=== PATIENT | male | born 1975 | race Caucasian/White ===

== ENCOUNTER 2020-11-30 09:32 | Emergency (ER) | payer OTHER ==
[~2020-11-30] VITALS: Ht 182.9 cm; Wt 111.1 kg
[2020-11-30 10:13] LABS: ABSOLUTE NEUTROPHILS 8.3 thou/uL (1.4-8.2); BASOPHILS 0.5 % (0.0-2.0); EOSINOPHILS 1.5 % (0.0-3.0); HEMATOCRIT 41.1 % (42.0-52.0); HEMOGLOBIN 14.2 gm/dL (14.0-18.0); LYMPHOCYTES 22.2 % (24.0-44.0); MCH 29.6 pg (26.0-34.0); MCHC 34.7 g/dL (28.0-37.0); MCV 85.3 fL (80.0-100.0); MONOCYTES 4.7 % (1.0-8.0); PLATELET COUNT 203 thou/uL (150-400); POLYS 71.1 % (36.0-66.0); RBC 4.81 mil/uL (4.50-6.00); RDW 13.4 % (10.5-14.5); WBC 11.7 thou/uL (4.0-11.0)
[2020-11-30 10:20] LABS: ANION GAP 14 mmol/L (7-16); BUN 16 mg/dL (7-18); CHLORIDE 99 mmol/L (98-107); CO2 24 mmol/L (21-32); CREATININE 0.9 mg/dL (0.7-1.3); GLUCOSE 278 mg/dL (74-106); POTASSIUM 3.9 mmol/L (3.5-5.1); SODIUM 137 mmol/L (136-145)
--- NOTE | 2020-11-30 10:26 | EKG ---
[place] [address] [facility] [employer] [place] [address] ELECTROCARDIOGRAM REPORT Name: GILBERTO PENG Room #: REG CHARLES Arredondo#: [id number] Admission: 11/30/20 Attend Phys: Discharge: Date of : 75 Report #: [id number] [facility] ED Test Date: 2020-11-30 Test Time: 09:34:29 Pat Name: GILBERTO PENG Department: Room: Gender: M Room Worker: Sammi BRADLEY : 1975 Requested By: Anthony Santos Order Number: [id number] MD: Vazquez De La Garza Measurements Intervals [place] Rate: 83 P: 62 OR: 160 QRS: 9 QRSD: 85 T: 22 QT: 340 QTc: 400 Interpretive Statements Sinus rhythm Probable left atrial enlargement ST elev, probable normal early repol pattern No previous ECG available for comparison Electronically Signed On 11-30-2020 10:26:32 CDT by Vazquez De La Garza [email or web address] <ELECTRONICALLY SIGNED> By: Vazquez De La Garza MD, [facility] 11/30/20 1026 0934 0934 Vzaquez De La Garza MD, FACC /EPI
[2020-11-30 10:31] LABS: ALBUMIN 3.3 g/dL (3.4-5.0); SGOT 13 U/L (15-37); SGPT 24 U/L (30-65); TOTAL BILIRUBIN 0.5 mg/dL (0.2-1.0); TOTAL PROTEIN 7.5 g/dL (6.4-8.2); TROPONIN-I <0.06 ng/mL (<0.06)
[2020-11-30 11:31] LABS: CHOLESTEROL 179 mg/dL (<200); HDL CHOLESTEROL 27 mg/dL (>40); LDL CHOLESTEROL 127 mg/dL (<100); TC:HDL 6.6 Ratio (Not establshd); TRIGLYCERIDE 128 mg/dL (<150); VLDL 26 mg/dL (<40)
--- NOTE | 2020-11-30 12:17 | EKG ---
[place] [address] [place] [address] ELECTROCARDIOGRAM REPORT Name: GILBERTO PENG Room #: REG CHARLES Arredondo#: [id number] Admission: 11/30/20 Attend Phys: Discharge: Date of : 75 Report #: [id number] [facility] ED Test Date: 2020-11-30 Test Time: 10:23:05 Pat Name: GILBERTO PENG Department: Room: Gender: M [employer]: ANGELINA : 1975 Requested By: Anthony Santos Order Number: [id number] MD: Vazquez De La Garza Measurements Intervals [place] Rate: 82 P: 54 MT: 158 QRS: 5 QRSD: 88 T: 10 QT: 347 QTc: 406 Interpretive Statements Sinus rhythm ST elev, probable normal early repol pattern Baseline wander in lead(s) V5 Compared to ECG 11/30/2020 09:34:29 No significant changes Electronically Signed On 11-30-2020 12:17:19 CDT by Vazquez De aL Garza [email or web address] <ELECTRONICALLY SIGNED> By: Vazquez De La Garza MD, [facility] 11/30/20 1217 1023 1023 Vazquez De La Garza MD, FACC /EPI
--- NOTE | 2020-11-30 14:46 | EXE ---
[facility] [place] [address] STRESS ECHOCARDIOGRAM Name: GILBERTO PENG Room #: REG Maria Elena#: [id number] Admission: 11/30/20 Attend Phys: Discharge: Date of : 75 Report #: [id number] THIS REPORT FOR: cc: FAM - Family physician unknown FAM - Family physician unknown Sukumar Perez MD [facility] ~ APPROVED REPORT Study performed: 11/30/2020 12:05:29 Exam: Stress Echocardiogram Indication: Chest pain Patient Location: ER Stress Nurse: Nancy Flannery RN Room #: 2 Status: routine Ht: 6 ft 0 in HR: 87 bpm BP: 106/84 mmHg Rhythm: NSR Medical History Medical History: Diabetes Cardiac Risk Factors: DM, Smoking, FHX of CAD Exercise History: Indeterminate Procedure The patient underwent an Exercise Stress Test using the Jordan Protocol. Blood pressure, heart rate, and EKG were monitored. An Echocardiogram was performed by reproduction technician in four stages in quad fashion. At peak stress, four selected images were obtained and placed side by side with resting images for comparison. Stress Test Details Stress Test: Exercise stress testing was performed using a Jordan protocol. HR Resting HR: 87 bpm Max Heart Rate (APMHR): 175 bpm Max HR Achieved: 148 bpm Target HR (85% APMHR): 148 bpm % of APMHR: 84 Recovery HR: 96 bpm HR response to stress: Normal HR response to stress BP [facility] [address] [place] [address] STRESS ECHOCARDIOGRAM Name: GILBERTO PENG [facility] #: [id number] Admission: 11/30/20 Attend Phys: Discharge: Date of : 75 Report #: [id number] Resting BP: 106/84 mmHg Max BP: 186/84 mmHg Recovery BP: 114/82 mmHg BP response to stress: Normal blood pressure response to stress. ECG Resting ECG: Sinus Rhythm, early repolarization Stress ECG: Sinus Tachycardia ST Change: Non-ischemic Maximum ST Deviation: 0 mm Arrhythmia: None Recovery ECG: Sinus Rhythm Recovery ST Change: Non-ischemic Recovery ST Deviation: 0 mm Recovery Arrhythmia: None Clinical Reason for Termination: Maximal effort Exercise duration: 9 min sec Highest Stage Achieved: Stage 3: 3.4 mph at 14% grade. Exercise capacity: 10.4 METs Overall Exercise Capacity for Age: Good Stress ECG Conclusion Clinical: Non-ischemic ECG: Non-ischemic Pre-Stress Echo The resting Echocardiogram showed normal left ventricular contractility with an estimated Ejection Fraction of about >55%. The resting echocardiogram demonstrated normal wall motion in all wall segments. Post-Stress Echo The stress Echocardiogram showed normal left ventricular contractility with an estimated Ejection Fraction of about 65-70%. Compared to rest, there were no stress-induced wall motion abnormalities. Conclusion Clinical Response: Non-ischemic Exercise Capacity: Average Stress ECG Response: Non-ischemic Stress Echo Images: Non-ischemic Color flow doppler was normal. Normal stress echocardiogram with maximal exercise stress. [facility] [address] [place] [address] STRESS ECHOCARDIOGRAM Name: GILBERTO PENG Room #: REG [facility]#: [id number] Admission: 11/30/20 Attend Phys: Discharge: Date of : 75 Report #: [id number] No prior study available for comparison. Other Information Study Quality: Good <Conclusion> Color flow doppler was normal. Normal stress echocardiogram with maximal exercise stress. <ELECTRONICALLY SIGNED> By: Sukumar Perez MD, FACC 11/30/20 1446 45 45 Sukumar Perez MD, FACC /INF
[2020-11-30] MEDS ORDERED: ROSUVASTATIN CA20 MG PO (15:07)
[2020-11-30] MEDS ORDERED: LISINOPRIL5 MG PO (15:07)
[2020-11-30 15:19] VITALS: BP 110/73
[2020-12-01 00:06] LABS: GLYCOHEMOGLOBIN (HGB A1C) 10.5 % (4.8-5.6)
== END 2020-11-30 15:19 | disposition home or self-care (01) ==
LOC: ER 09:32
PROVIDERS: Emergency Medicine; Nurse Practitioner Adult Health
DX: R07.89 Other chest pain (principal); E11.9 Type 2 diabetes mellitus without complications; F17.210 Nicotine dependence, cigarettes, uncomplicated; Z88.8 Allergy status to other drugs, medicaments and biological substances